=== PATIENT | female | born 1995 | race Caucasian/White ===

== ENCOUNTER 2017-09-01 02:20 | Emergency (ER) | payer OTHER ==
[~2017-09-01] VITALS: Ht 157.5 cm; Wt 50.0 kg
[2017-09-01 02:23] VITALS: BP 115/72; PULSE 78; RESP 16; TEMP 98.1; O2SAT 100
[2017-09-01 02:33] VITALS: BP 122/70; PULSE 74; RESP 16; O2SAT 100
[2017-09-01] MEDS ORDERED: SODIUM CHLOR 0.9% 1000 ML INJ 1,000 ML IV SCH (02:33)
--- NOTE | 2017-09-01 02:41 | PD ---
HPI Chief Complaint: Abdominal Pain Time Seen by Provider: 02:33 Travel History International Travel<30 days: No Contact w/Intl Traveler<30days: No Traveled to known affect area: No History of Present Illness HPI 22-year-old female presents to the emergency department by private transportation the care of her spouse for complaint of severe 10 over 10 abdominal pain. Patient reports epigastric abdominal pain that feels like she' s being stabbed in her stomach. Symptoms began upon awakening this morning prior to arrival to the emergency department. Patient denies as she is currently demonstrated. Patient's had no fever or chills. Patient's had episode of vomiting without coffee-ground emesis or hematemesis. No diarrhea. No dysuria frequency or urgency per report. Patient is unable to identify exacerbating or alleviating factors but does report that is very painful for her to try to lay down or to ambulate. No prior history of similar pain. Patient does have history of right ovarian cysts. PFSH Past Medical History Narrative Medical Anxiety chest pain umbilical herniorrhaphy occasional alcohol use nursing notes reviewed Asthma: No Blood Disorders: No Anxiety: No Depression: Yes Heart Rhythm Problems: Yes (MURMUR) Cancer: No Cardiovascular Problems: Yes (HEART MURMUR) High Cholesterol: No Chemotherapy: No Chest Pain: Yes (OFF AND ON) Congestive Heart Failure: No COPD: No Diabetes: No Diminished Hearing: No Endocrine: No Glaucoma: No Genitourinary: No Headaches: Yes Hepatitis: No Hiatal Hernia: No Hypertension: No Immune Disorder: No Musculoskeletal: No Neurologic: No Psychiatric: Yes Reproductive: No Respiratory: No Radiation Therapy: No Sleep Apnea: No Thyroid Disease: No Tetanus Vaccination: < 5 Years ?: Not LMP: 08/31/2017 Past Surgical History Abdominal Surgery: Yes (ABD HERNIA REPAIR as a child) Cardiac Surgery: No Ear Surgery: No Endocrine Surgery: No Eye Surgery: No Genitourinary Surgery: No Gynecologic Surgery: No Oral Surgery: No Pacemaker: No Thoracic Surgery: No Tonsillectomy: Yes Other Surgery: Yes (REPAIR OF UMBILICAL HERNIA CHILD) Social History Alcohol Use: Yes (social) Tobacco Use: Yes Substance Use: No Allergies-Medications (Allergen,Severity, Reaction): Coded Allergies: No Known Allergies (Verified , 08/28/14) Reported Meds & Prescriptions Reported Meds & Active Scripts Active No Active Prescriptions or Reported Medications Review of Systems Except as stated in HPI: all other systems reviewed are Neg General / Constitutional: No: Fever, Chills HENT: No: Congestion Cardiovascular: No: Chest Pain or Discomfort Respiratory: No: Shortness of Breath Gastrointestinal: Positive: Nausea, Abdominal Pain Genitourinary: No: Flank Pain Musculoskeletal: No: Myalgias, Arthralgias Skin: No Rash Neurologic: No: Weakness Psychiatric: Positive: Anxiety Hematologic/Lymphatic: No: Lymph Node Enlargement Physical Exam Narrative GENERAL: Well-developed well-nourished female in obvious discomfort no respiratory distress; triage vital signs found to be in normal range with GCS of 15 SKIN: Warm and dry. HEAD: Normocephalic. EYES: No scleral icterus. No injection or drainage. NECK: Supple, trachea midline. No JVD or lymphadenopathy. CARDIOVASCULAR: Regular rate and rhythm without murmurs, gallops, or rubs. RESPIRATORY: Breath sounds equal bilaterally. No accessory muscle use. GASTROINTESTINAL: Abdomen soft, diffusely tender primarily epigastric region with voluntary guarding nondistended, nondistended. MUSCULOSKELETAL: No cyanosis, or edema. BACK: Nontender without obvious deformity. No CVA tenderness. Data Data Last Documented VS Vital Signs Date Time Temp Pulse Resp B/P (MAP) Pulse Ox O2 Delivery O2 Flow Rate FiO2 09/01/17 04:28 60 16 115/74 (88) 98 Room Air 09/01/17 02:23 98.1 Orders Orders Complete Blood Count With Diff (09/01/17 02:33) Comprehensive Metabolic Panel (09/01/17 02:33) Lipase (09/01/17 02:33) Urinalysis - C+S If Indicated (09/01/17 02:33) Ct Abd/Pel W Iv Contrast(Rout) (09/01/17 02:33) Iv Access Insert/Monitor (09/01/17 02:33) Ecg Monitoring (09/01/17 02:33) Oximetry (09/01/17 02:33) Ondansetron Inj (Zofran Inj) (09/01/17 02:45) Sodium Chlor 0.9% 1000 Ml Inj (Ns 1000 M (09/01/17 02:33) Sodium Chloride 0.9% Flush (Ns Flush) (09/01/17 02:45) Chest, Single Ap (09/01/17 02:33) Ed Urine Pregnancytest Poc (09/01/17 02:33) Hydromorphone Pf Inj (Dilaudid Pf Inj) (09/01/17 02:45) Ed Discharge Order (09/01/17 03:30) Iohexol 350 Inj (Omnipaque 350 Inj) (09/01/17 03:30) Us Abdomen Gallbladder (09/01/17 ) Hydromorphone Pf Inj (Dilaudid Pf Inj) (09/01/17 04:30) Ketorolac Inj (Toradol Inj) (09/01/17 04:30) Sodium Chlor 0.9% 1000 Ml Inj (Ns 1000 M (09/01/17 04:30) Labs Laboratory Tests Test 09/01/17 02:45 White Blood Count 9.3 TH/MM3 Red Blood Count 4.57 MIL/MM3 Hemoglobin 13.4 GM/DL Hematocrit 39.6 % Mean Corpuscular Volume 86.7 FL Mean Corpuscular Hemoglobin 29.4 PG Mean Corpuscular Hemoglobin Concent 33.9 % Red Cell Distribution Width 13.0 % Platelet Count 319 TH/MM3 Mean Platelet Volume 7.7 FL Neutrophils (%) (Auto) 83.1 % Lymphocytes (%) (Auto) 11.6 % Monocytes (%) (Auto) 3.7 % Eosinophils (%) (Auto) 1.0 % Basophils (%) (Auto) 0.6 % Neutrophils # (Auto) 7.8 TH/MM3 Lymphocytes # (Auto) 1.1 TH/MM3 Monocytes # (Auto) 0.3 TH/MM3 Eosinophils # (Auto) 0.1 TH/MM3 Basophils # (Auto) 0.1 TH/MM3 CBC Comment DIFF FINAL Differential Comment Urine Color YELLOW Urine Turbidity HAZY Urine pH 6.5 Urine Specific Cruger 1.015 Urine Protein NEG mg/dL Urine Glucose (UA) NEG mg/dL Urine Ketones TRACE mg/dL Urine Occult Blood NEG Urine Nitrite NEG Urine Bilirubin NEG Urine Urobilinogen LESS THAN 2.0 MG/DL Urine Leukocyte Esterase NEG Urine RBC 1 /hpf Urine WBC 3 /hpf Urine Squamous Epithelial Cells 11 /hpf Urine Amorphous Sediment RARE Urine Mucus FEW /lpf Microscopic Urinalysis Comment CULT NOT INDICATED Blood Urea Nitrogen 11 MG/DL Creatinine 0.61 MG/DL Random Glucose 103 MG/DL Total Protein 7.4 GM/DL Albumin 4.0 GM/DL Calcium Level 8.6 MG/DL Alkaline Phosphatase 46 U/L Aspartate Amino Transf (AST/SGOT) 19 U/L Alanine Aminotransferase (ALT/SGPT) 22 U/L Total Bilirubin 0.7 MG/DL Sodium Level 141 MEQ/L Potassium Level 3.9 MEQ/L Chloride Level 105 MEQ/L Carbon Dioxide Level 28.8 MEQ/L Anion Gap 7 MEQ/L Estimat Glomerular Filtration Rate 123 ML/MIN Lipase 90 U/L MDM Medical Decision Making Medical Screen Exam Complete: Yes Emergency Medical Condition: Yes Medical Record Reviewed: Yes Interpretation(s) Chest x-ray: No infiltrate or subdiaphragmatic free air CBC & BMP Diagram 09/01/17 02:45 Total Protein 7.4, Albumin 4.0, Calcium Level 8.6, Alkaline Phosphatase 46, Aspartate Amino Transf (AST/SGOT) 19, Alanine Aminotransferase (ALT/SGPT) 22, Total Bilirubin 0.7 Vital Signs Date Time Temp Pulse Resp B/P (MAP) Pulse Ox O2 Delivery O2 Flow Rate FiO2 09/01/17 02:33 74 16 122/70 (87) 100 Room Air 09/01/17 02:23 98.1 78 16 115/72 (86) 100 [id number] hCG: Negative Last Impressions Chest X-Ray 09/01/17232 Signed Impressions: Service Date/Time: Friday, September 01, 2017 02:47 - CONCLUSION: No evidence of acute cardiopulmonary disease. Homar Chen MD Abdomen/Pelvis CT 09/01/17232 Signed Impressions: Service Date/Time: Friday, September 01, 2017 03:28 - CONCLUSION: 1. Mild intrahepatic and extrahepatic biliary distention of unclear etiology but there is the possibility of small/gravel-like stones in the gallbladder. Please correlate clinically and serologically for evidence of biliary obstruction. Gallbladder is contracted and without perceptible inflammatory changes. 2. Otherwise essentially normal. Slight S. shaped thoracolumbar curvature. Homar Chen MD GBU/S: CONCLUSION: 1. Mildly prominent common bile duct caliber for a patient this age but no etiology is seen. No duct the stone seen. Also no gallstones demonstrated. 2. Contracted gallbladder with small sludge. No wall thickening when accounting for the degree of distention. No pericholecystic fluid. Homar Chen MD on September 01, 2017 at 6:03 Board Certified Radiologist. This report was verified electronically. Differential Diagnosis Abdominal pain, peptic ulcer disease, biliary colic, pancreatitis, perforated viscus, bowel obstruction; also to consider ectopic ovarian cyst rupture ovarian torsion Narrative Course Patient placed on monitor IV access obtained resulting patient placed on pulse oximetry: Patient administered Zofran 4 mg IV and Dilaudid 0.5 mg IV with IV fluid infusion Lab values found to be in normal range CT abdomen and pelvis concerning for possible small stones contracted gallbladder with some intra-and extra hepatic ductal dilatation without gallbladder wall thickening and pericholecystic fluid or inflammatory changes with ultrasound recommended Patient with nausea and mild recurrence of discomfort therefore given additional dose of Dilaudid 0.5 mg and Toradol 30 mg Ultrasound is at bedside patient tolerating ultrasound well without complaint of pain and no clinical Rhodes sign Ultrasound resulted and per reading radiologist gallbladder is contracted no gallbladder wall thickening no pericholecystic fluid no obvious stones common bile duct is upper limit of normal but without obvious evidence of obstruction and no gallstones seen mild sludge is noted Lab results CT results and ultrasound results are discussed in detail with the patient was spouse at bedside patient is asymptomatic and pain-free at this time ; no evidence for acute cholecystitis at this time or biliary obstruction therefore patient will be allowed to be discharged to home with diagnosis of biliary colic with recommendation to follow clear liquid diet over the next 12- 24 hours advance diet as tolerated to regular diet avoiding fried and fatty foods is discussed in detail and patient will need to follow closely with her primary care provider and will recommend referral to general surgeon. Diagnosis Primary Impression: Abdominal pain Additional Impression: Biliary colic Referrals: Primary Care Physician call for appointment Patient Instructions: Narcotic given in the ED, General Instructions Additional Instructions: Follow clear liquid diet for next 12-24 hours advance as tolerated to bland/ Haylee diet then regular diet avoiding fried and fatty foods Follow-up with your primary care provider call office in a.m. to schedule follow -up appointment Return to the emergency for for pain fever vomiting or any concerns No work times one day Monitor temperature with thermometer and take as needed acetaminophen/Tylenol for fever 100.4F or greater Increase fluid hydration Takes Zofran as prescribed as needed for nausea and/or vomiting Med/Other Pt SpecificInfo: Prescription(s) given Scripts Ondansetron Odt (Zofran Odt) 4 Mg Tab 4 MG SL Q6HR Y for Nausea/Vomiting, #10 TAB 0 Refills Prov: Angela Ordonez MD 09/01/17 Disposition: 01 DISCHARGE HOME Condition: Stable Angela Ordonez MD Sep 01, 2017 02:41
[2017-09-01] MEDS ORDERED: SODIUM CHLORIDE 0.9% FLUSH 10 ML FLUSH IV FLUSH PRN (02:45)
[2017-09-01] MEDS ORDERED: HYDROmorphone HCL PF 0.5 MG/0.5 ML SYRINGE IV PUSH ONE ×2 (02:45→04:30)
[2017-09-01] MEDS ORDERED: ONDANSETRON HCL 4 MG/2 ML VIAL IVP ONE (02:45)
[2017-09-01 02:58] LABS: AUTOMATED NEUTROPHIL # 7.8 TH/MM3 (1.8-7.7); BASOPHIL # 0.1 TH/MM3 (0-0.2); BASOPHIL % 0.6 % (0.0-2.0); EOSINOPHIL # 0.1 TH/MM3 (0-0.4); HEMATOCRIT 39.6 % (35.0-46.0); HEMO FLAGS DIFF FINAL; LYMPH % 11.6 % (9.0-44.0); LYMPHOCYTE # 1.1 TH/MM3 (1.0-4.8); MEAN CELL VOLUME 86.7 FL (80.0-100.0); MEAN CORPUSCULAR HEMOGLOBIN 29.4 PG (27.0-34.0); MEAN CORPUSCULAR HGB CONC 33.9 % (32.0-36.0); MONO % 3.7 % (0.0-8.0); NEUT % 83.1 % (16.0-70.0); PLATELET COUNT 319 TH/MM3 (150-450); RED BLOOD COUNT 4.57 MIL/MM3 (4.00-5.30); WHITE BLOOD COUNT 9.3 TH/MM3 (4.0-11.0)
[2017-09-01 02:59] LABS: BLOOD, URINE NEG (NEG); COMMENT (UR) CULT NOT INDICATED; CULTURE IF INDICATED CULT NOT INDICATED; GLUCOSE,URINE NEG (NEG); KETONE, URINE TRACE mg/dL (NEG); MUCUS URINE FEW /lpf (OCC); NITRITE,URINE NEG (NEG); PH, URINE 6.5 (5.0-8.5); SQUAMOUS EPITHELIAL CELL URINE 11 /hpf (0-5); URINE COLOR YELLOW (YELLW/STRAW)
[2017-09-01 03:10] LABS: ALT (GPT) 22 U/L (10-53); ANION GAP 7 MEQ/L (5-15); AST (GOT) 19 U/L (15-37); BICARBONATE 28.8 MEQ/L (21.0-32.0); BLOOD UREA NITROGEN 11 MG/DL (7-18); CHLORIDE 105 MEQ/L (98-107); GLOMERULAR FILTRATION RATE 123 ML/MIN (>89); POTASSIUM 3.9 MEQ/L (3.5-5.1); SODIUM (NA) 141 MEQ/L (136-145)
[2017-09-01 03:12] LABS: ALKALINE PHOSPHATASE 46 U/L (45-117); TOTAL BILIRUBIN ADULT 0.7 MG/DL (0.2-1.0)
[2017-09-01] MEDS ORDERED: IOHEXOL 350 MG/ML 10 ML VIAL (for RAD DIAG) IVCONTRAST ONE (03:30)
--- NOTE | 2017-09-01 03:32 | RADRPT ---
EXAM DATE/TIME: 09/01/2017 02:47 [facility] COMPARISON: CHEST SINGLE AP, February 11, 2014, 13:22. INDICATIONS : Chest pain. MEDICAL HISTORY : None. SURGICAL HISTORY : None. ENCOUNTER: Initial ACUITY: 1 day PAIN SCORE: 8/10 LOCATION: Bilateral chest FINDINGS: A single view of the chest demonstrates the lungs to be symmetrically aerated without evidence of mas s, infiltrate or effusion. The cardiomediastinal contours are unremarkable. Osseous structures are intact. CONCLUSION: No evidence of acute cardiopulmonary disease. Homar Chen MD on September 01, 2017 at 3:31 Board Certified Radiologist. This report was verified electronically.
--- NOTE | 2017-09-01 03:43 | RADRPT ---
EXAM DATE/TIME: 09/01/2017 03:28 [facility] COMPARISON: No previous studies available for comparison. INDICATIONS : Epigastric abdominal pain. IV CONTRAST: 70 cc Omnipaque 350 (iohexol) IV ORAL CONTRAST: No oral contrast ingested. RADIATION DOSE: 4.84 CTDIvol (mGy) MEDICAL HISTORY : None SURGICAL HISTORY : Umbilical hernia repair. ENCOUNTER: Initial ACUITY: 1 day PAIN SCALE: 10/10 LOCATION: Epigastric. TECHNIQUE: Volumetric scanning of the abdomen and pelvis was performed. Using automated exposure control and ad justment of the mA and/or kV according to patient size, radiation dose was kept as low as reasonably achievable to obtain optimal diagnostic quality images. DICOM format image data is available electro nically for review and comparison. FINDINGS: LOWER LUNGS: The visualized lower lungs are clear. LIVER: Common bile duct measures 6 mm. Also mild intrahepatic biliary distention. Gallbladder is contracted. There is slightly increased attenuation in the fundus suggesting the possibility of numerous small/g ravel-like stones. I don't clearly see a stone within the duct. No focal hepatic lesion. SPLEEN: Normal size without lesion. PANCREAS: Within normal limits. KIDNEYS: Normal in size and shape. There is no mass, stone or hydronephrosis. ADRENAL GLANDS: Within normal limits. VASCULAR: There is no aortic aneurysm. BOWEL/MESENTERY: The stomach, small bowel, and colon demonstrate no acute abnormality. There is no free intraperitone al air or fluid. No appendix inflammatory changes. ABDOMINAL WALL: Within normal limits. RETROPERITONEUM: There is no lymphadenopathy. BLADDER: No wall thickening or mass. REPRODUCTIVE: Within normal limits. INGUINAL: There is no lymphadenopathy or hernia. MUSCULOSKELETAL: No acute bony abnormality demonstrated. Mild S-shaped thoracolumbar curvature. CONCLUSION: 1. Mild intrahepatic and extrahepatic biliary distention of unclear etiology but there is the possibi lity of small/gravel-like stones in the gallbladder. Please correlate clinically and serologically fo r evidence of biliary obstruction. Gallbladder is contracted and without perceptible inflammatory ralf nges. 2. Otherwise essentially normal. Slight S. shaped thoracolumbar curvature. Homar Chen MD on September 01, 2017 at 3:37 Board Certified Radiologist. This report was verified electronically.
[2017-09-01 04:28] VITALS: BP 115/74; PULSE 60; RESP 16; O2SAT 98
[2017-09-01] MEDS ORDERED: SODIUM CHLOR 0.9% 1000 ML INJ 1,000 ML IV ONE (04:30)
[2017-09-01] MEDS ORDERED: KETOROLAC TROMETHAMINE 30 MG/ML (IVP) VIAL IV PUSH ONE (04:30)
--- NOTE | 2017-09-01 06:07 | RADRPT ---
EXAM DATE/TIME: 09/01/2017 05:28 [facility] COMPARISON: No previous studies available for comparison. INDICATIONS : Right upper quadrant pain. MEDICAL HISTORY : Heart murmur. Depression. Abdominal pain. SURGICAL HISTORY : Tonsillectomy. Umbilical hernia repair. ENCOUNTER: Initial ACUITY: 1 day PAIN SCORE: 5/10 LOCATION: Right upper quadrant MEASUREMENTS: LIVER: 14.2 cm length COMMON DUCT: 6 mm RIGHT KIDNEY: 10.5 x 4.5 x 4.2 cm FINDINGS: LIVER: Normal echotexture without focal lesion. Normal flow velocity and direction in the main portal vein. COMMON DUCT: No intraluminal mass or stone visualized. GALLBLADDER: Contracted and with small sludge near the neck. No measurable stone. No pericholecystic fluid. PANCREAS: The visualized portions are within normal limits. RIGHT KIDNEY: No evidence of hydronephrosis, stone, or mass. CONCLUSION: 1. Mildly prominent common bile duct caliber for a patient this age but no etiology is seen. No duct the stone seen. Also no gallstones demonstrated. 2. Contracted gallbladder with small sludge. No wall thickening when accounting for the degree of dis tention. No pericholecystic fluid. Homar Chen MD on September 01, 2017 at 6:03 Board Certified Radiologist. This report was verified electronically.
[2017-09-01] MEDS ORDERED: ZOFR4TAB3 SL (06:20)
[2017-09-01 06:29] VITALS: BP 122/64
== END 2017-09-01 06:44 | disposition home or self-care (01) ==
LOC: NEPC 02:20
DX: K80.51 Calculus of bile duct without cholangitis or cholecystitis with obstruction (principal); Z72.0 Tobacco use
CPT/HCPCS: 71010; 74177; 76705; 80053; 81001; 83690; 84703; 85025; 96361; 96374; 96375; 96376; 99285; J1170; J1885; J2405; J7030; Q9967